=== PATIENT | female | born 1930 | race Caucasian/White ===

== ENCOUNTER 2018-02-12 12:43 | Observation (INO) | payer MEDICARE, BC ==
[2018-02-12] MEDS ORDERED: Sodium Chloride 0.9% 2.5 ML Syringe FLUSH PRN (12:45)
[2018-02-12] MEDS ORDERED: Sodium Chloride 0.9% 10 ML Syringe FLUSH PRN (12:45)
[2018-02-12] MEDS ORDERED: Sodium Chloride 0.9% 500 ML IV SCH (13:45)
[2018-02-12 14:24] LABS: CHLORIDE,CL 93 mmol/L (98-107); SODIUM,NA 129 mmol/L (136-145)
--- NOTE | 2018-02-12 14:50 | EDM.PDOC ---
ED HPI GENERAL MEDICAL PROBLEM - General Chief Complaint: Gastrointestinal Problem Stated Complaint: CONSTIPATION Time Seen by Provider: 02/12/18 14:47 Source of Information: Reports: Patient - History of Present Illness INITIAL COMMENTS - FREE TEXT/NARRATIVE: HISTORY AND PHYSICAL: History of present illness: [Patient presents with a chief complaint of constipation dizziness with standing and shakiness She generally lives alone In [place], [place]. She noted that she was having some constipation on Friday however Friday she did have a hard bowel movement, she called her son to come and get her to stay with him as she was feeling somewhat unsteady and lightheaded with standing and presents as such As she is asymptomatic alert interactive, he has dry mouth and oral mucosa skin tenting on the dorsum of her hands O fever nausea vomiting chills sweats no chest pain shortness of breath headache or palpitation no urine symptoms she does complain of dizziness with sitting or standing Review of systems: As per history of present illness and below otherwise all systems reviewed and negative. Past medical history: As per history of present illness and as reviewed below otherwise noncontributory. Surgical history: As per history of present illness and as reviewed below otherwise noncontributory. Social history: No reported history of drug or alcohol abuse. Family history: As per history of present illness and as reviewed below otherwise noncontributory. Physical exam: HEENT: Atraumatic, normocephalic, pupils reactive, negative for conjunctival pallor or scleral icterus, mucous membranes moist, throat clear, neck supple, nontender, trachea midline. Lungs: Clear to auscultation, breath sounds equal bilaterally, chest nontender. Heart: S1S2, regular, negative for clicks, rubs, or JVD. Abdomen: Soft, nondistended, nontender. Negative for masses or hepatosplenomegaly. Negative for costovertebral tenderness. Pelvis: Stable nontender. Genitourinary: Deferred. Rectal: Deferred. Extremities: Atraumatic, negative for cords or calf pain. Neurovascular unremarkable. Neuro: Awake, alert, oriented. Cranial nerves II through XII unremarkable. Cerebellum unremarkable. Motor and sensory unremarkable throughout. Exam nonfocal. Diagnostics: [CBC CMP UA troponin EKG Chest 1 view abd flat and upright CT head no contrast Orthostatic vitals ] Therapeutics: [ 500 mL normal saline bolus followed by 1 25 mL per hour ] Impression: [ dehydration Podiatry medius symptomatic secondary to above Orthostatic hypotension secondary to above Constipation secondary to above Renal insufficiency secondary to above Chronic history of baseline ] Definitive disposition and diagnosis as appropriate pending reevaluation and review of above. Abdominal Pain Score (Numeric/FACES): 3 - Related Data Allergies Allergy/AdvReac Type Severity Reaction Status Date / Time codeine Allergy Hives Verified 02/12/18 12:58 erythromycin base Allergy Hives Verified 02/12/18 12:58 Home Meds: Home Meds Amitriptyline [Elavil] 10 mg PO BEDTIME 09/16/14 [History] Levothyroxine 112 mcg PO DAILY 09/16/14 [History] Omeprazole [Prilosec] 20 mg PO DAILY 09/16/14 [History] Simvastatin [Zocor] 10 mg PO BEDTIME 09/16/14 [History] Acetaminophen 500 mg PO 02/12/18 [History] Calcium Carbonate/Vitamin D3 [Calcium 600 + Vit D 200] 1 tab PO DAILY 02/12/18 [ History] Cyanocobalamin (Vitamin B-12) [Vitamin B-12] 1,000 mcg PO DAILY 02/12/18 [ History] Fluticasone/Salmeterol [Advair 250-50] 1 puff INH BID 02/12/18 [History] Gluc/Drew-Msm#2/C/D3/Erich/Born [Roboxdyalj-Uctuzbmolyo-DCJ] 1 each PO DAILY 12/26 [History] Past Medical History Cardiovascular History: Reports: High Cholesterol, Hypertension Respiratory History: Reports: Asthma Gastrointestinal History: Reports: Chronic Constipation [employer] History: Reports: Neurological History: Reports: Other (See Below) Other Neuro History: andrea's Palsy Endocrine/Metabolic History: Reports: Hypothyroidism - Infectious Disease History Infectious Disease History: Reports: Measles, Mumps Social & Family History - Family History Family Medical History: Noncontributory - Tobacco Use Smoking Status *Q: Never Smoker - Caffeine Use Caffeine Use: Reports: Coffee - Recreational Drug Use Recreational Drug Use: No ED ROS GENERAL - Review of Systems Review Of Systems: See Below ED EXAM, GENERAL - Physical Exam Exam: See Below Course - Vital Signs Last Recorded V/S: Last Vital Signs Temp 96.5 F 02/12/18 13:00 Pulse 81 02/12/18 15:37 Resp 16 02/12/18 15:37 BP 142/73 H 02/12/18 15:37 Pulse Ox 94 L 02/12/18 15:37 Orthostatic Blood Pressure [ 89/45 Standing] Orthostatic Blood Pressure [ 115/65 Sitting] Orthostatic Blood Pressure [ 145/67 Supine] - Orders/Labs/Meds Orders: Active Orders 24 hr Category Date Time Status EKG Documentation Completion [RC] STAT Care 02/12/18 13:08 Active Orthostatic Vital Signs [RC] ASDIRECTED Care 02/12/18 13:38 Active Abdomen Series w Chest 1V [CR] Stat Exams 02/12/18 13:37 Taken Head wo Cont [CT] Stat Exams 02/12/18 14:02 Taken CULTURE URINE [RM] Stat Lab 02/12/18 14:11 Received UA W/MICROSCOPIC [URIN] Stat Lab 02/12/18 14:11 Ordered Sodium Chloride 0.9% [Normal Saline] 1,000 ml Med 02/12/18 14:45 Active IV STAT Sodium Chloride 0.9% [Normal Saline] 500 ml Med 02/12/18 13:45 Active IV STAT Sodium Chloride 0.9% [Saline Flush] Med 02/12/18 12:45 Active 10 ml FLUSH ASDIRECTED PRN Sodium Chloride 0.9% [Saline Flush] Med 02/12/18 12:45 Active 2.5 ml FLUSH ASDIRECTED PRN Saline Lock Insert [OM.PC] Stat Oth 02/12/18 12:45 Ordered Medication Orders Sodium Chloride (Normal Saline) 500 mls @ 999 mls/hr IV STAT MARIVEL Last Admin: 02/12/18 13:59 Dose: 999 mls/hr Sodium Chloride (Normal Saline) 1,000 mls @ 125 mls/hr IV STAT MARIVEL Last Admin: 02/12/18 15:24 Dose: 125 mls/hr Sodium Chloride (Saline Flush) 10 ml FLUSH ASDIRECTED PRN PRN Reason: Keep Vein Open Last Admin: 02/12/18 13:59 Dose: 10 ml Sodium Chloride (Saline Flush) 2.5 ml FLUSH ASDIRECTED PRN PRN Reason: Keep Vein Open Last Admin: 02/12/18 13:59 Dose: 2.5 ml Labs: Laboratory Tests 02/12/18 02/12/18 02/12/18 Range/Units 13:41 13:41 13:41 WBC 6.58 (4.0-11.0) K/uL RBC 4.25 L (4.30-5.90) M/uL Hgb 13.1 (12.0-16.0) g/dL Hct 38.9 (36.0-46.0) % MCV 91.5 (80.0-98.0) fL MCH 30.8 (27.0-32.0) pg MCHC 33.7 (31.0-37.0) g/dL RDW Std Deviation 43.3 (28.0-62.0) fl RDW Coeff of Carina 13 (11.0-15.0) % Plt Count 231 (150-400) K/uL MPV 8.90 (7.40-12.00) fL Neut % (Auto) 67.7 (48.0-80.0) % Lymph % (Auto) 23.1 (16.0-40.0) % [place] % (Auto) 9.0 (0.0-15.0) % Eos % (Auto) 0.0 (0.0-7.0) % Baso % (Auto) 0.2 (0.0-1.5) % Neut # (Auto) 4.5 (1.4-5.7) K/uL Lymph # (Auto) 1.5 (0.6-2.4) K/uL [place] # (Auto) 0.6 (0.0-0.8) K/uL Eos # (Auto) 0.0 (0.0-0.7) K/uL Baso # (Auto) 0.0 (0.0-0.1) K/uL Nucleated RBC % 0.0 /100WBC Nucleated RBCs # 0 K/uL INR 1.00 Sodium 129 L (136-145) mmol/L Potassium 4.5 (3.5-5.1) mmol/L Chloride 93 L (98-107) mmol/L Carbon Dioxide 27.0 (21.0-32.0) mmol/L BUN 27 H (7.0-18.0) mg/dL Creatinine 1.4 H (0.6-1.0) mg/dL Est Cr Clr Drug Dosing TNP Estimated GFR (MDRD) 35.7 ml/min Glucose 86 (74-106) mg/dL Calcium 9.6 (8.5-10.1) mg/dL Total Bilirubin 0.6 (0.2-1.0) mg/dL AST 17 (15-37) IU/L ALT 19 (14-63) IU/L Alkaline Phosphatase 97 (46-116) U/L Troponin I < 0.050 (0.000-0.056) ng/mL Total Protein 8.3 H (6.4-8.2) g/dL Albumin 3.6 (3.4-5.0) g/dL Globulin 4.7 H (2.0-3.5) g/dL Albumin/Globulin Ratio 0.8 L (1.3-2.8) Lipase 84 (73-393) U/L TSH 3rd Generation (0.36-3.74) uIU/mL Urine Color Urine Appearance Urine pH (5.0-8.0) Ur Specific [place] (1.001-1.035) Urine Protein (NEGATIVE) mg/dL Urine Glucose (UA) (NEGATIVE) mg/dL Urine Ketones (NEGATIVE) mg/dL Urine Occult Blood (NEGATIVE) Urine Nitrite (NEGATIVE) Urine Bilirubin (NEGATIVE) Urine Ictotest Urine Urobilinogen (<2.0) EU/dL Ur Leukocyte Esterase (NEGATIVE) Urine RBC (0-2/HPF) Urine WBC (0-5/HPF) Ur Epithelial Cells (NONE-FEW) Amorphous Sediment (NEGATIVE) Urine Bacteria (NEGATIVE) 02/12/18 02/12/18 Range/Units 13:41 14:11 WBC (4.0-11.0) K/uL RBC (4.30-5.90) M/uL Hgb (12.0-16.0) g/dL Hct (36.0-46.0) % MCV (80.0-98.0) fL MCH (27.0-32.0) pg MCHC (31.0-37.0) g/dL RDW Std Deviation (28.0-62.0) fl RDW Coeff of Carina (11.0-15.0) % Plt Count (150-400) K/uL MPV (7.40-12.00) fL Neut % (Auto) (48.0-80.0) % Lymph % (Auto) (16.0-40.0) % [place] % (Auto) (0.0-15.0) % Eos % (Auto) (0.0-7.0) % Baso % (Auto) (0.0-1.5) % Neut # (Auto) (1.4-5.7) K/uL Lymph # (Auto) (0.6-2.4) K/uL [place] # (Auto) (0.0-0.8) K/uL Eos # (Auto) (0.0-0.7) K/uL Baso # (Auto) (0.0-0.1) K/uL Nucleated RBC % /100WBC Nucleated RBCs # K/uL INR Sodium (136-145) mmol/L Potassium (3.5-5.1) mmol/L Chloride (98-107) mmol/L Carbon Dioxide (21.0-32.0) mmol/L BUN (7.0-18.0) mg/dL Creatinine (0.6-1.0) mg/dL Est Cr Clr Drug Dosing Estimated GFR (MDRD) ml/min Glucose (74-106) mg/dL Calcium (8.5-10.1) mg/dL Total Bilirubin (0.2-1.0) mg/dL AST (15-37) IU/L ALT (14-63) IU/L Alkaline Phosphatase (46-116) U/L Troponin I (0.000-0.056) ng/mL Total Protein (6.4-8.2) g/dL Albumin (3.4-5.0) g/dL Globulin (2.0-3.5) g/dL Albumin/Globulin Ratio (1.3-2.8) Lipase (73-393) U/L TSH 3rd Generation 0.21 L (0.36-3.74) uIU/mL Urine Color DARK YELLOW Urine Appearance SLT CLOUDY Urine pH 5.0 (5.0-8.0) Ur Specific [place] 1.025 (1.001-1.035) Urine Protein NEGATIVE (NEGATIVE) mg/dL Urine Glucose (UA) NEGATIVE (NEGATIVE) mg/dL Urine Ketones TRACE H (NEGATIVE) mg/dL Urine Occult Blood SMALL H (NEGATIVE) Urine Nitrite NEGATIVE (NEGATIVE) Urine Bilirubin SMALL H (NEGATIVE) Urine Ictotest NEGATIVE Urine Urobilinogen 0.2 (<2.0) EU/dL Ur Leukocyte Esterase SMALL (NEGATIVE) Urine RBC 0-1 (0-2/HPF) Urine WBC 1-3 (0-5/HPF) Ur Epithelial Cells FEW (NONE-FEW) Amorphous Sediment MODERATE (NEGATIVE) Urine Bacteria FEW (NEGATIVE) Meds: Medications Generic Name Dose Route Start Last Admin Trade Name Freq PRN Reason Stop Dose Admin Sodium Chloride 500 mls @ 999 mls/hr 02/12/18 13:45 02/12/18 13:59 Normal Saline IV 999 mls/hr STAT MARIVEL Administration Sodium Chloride 1,000 mls @ 125 mls/hr 02/12/18 14:45 02/12/18 15:24 Normal Saline IV 125 mls/hr STAT MARIVEL Administration Sodium Chloride 10 ml 02/12/18 12:45 02/12/18 13:59 Saline Flush FLUSH 10 ml ASDIRECTED PRN Administration Keep Vein Open Sodium Chloride 2.5 ml 02/12/18 12:45 02/12/18 13:59 Saline Flush FLUSH 2.5 ml ASDIRECTED PRN Administration Keep Vein Open Departure - Departure Time of Disposition: 15:40 Disposition: Refer to Observation Condition: Fair Clinical Impression: Dehydration, Hyponatremia - Discharge Information Referrals: PCP,None [Primary Care Provider] - Forms: ED Department Discharge - My Orders Last 24 Hours: My Active Orders 02/12/18 13:08 EKG Documentation Completion [RC] STAT 02/12/18 13:37 Abdomen Series w Chest 1V [CR] Stat 02/12/18 13:38 Orthostatic Vital Signs [RC] ASDIRECTED 02/12/18 13:45 Sodium Chloride 0.9% [Normal Saline] 500 ml IV STAT 02/12/18 14:02 Head wo Cont [CT] Stat 02/12/18 14:11 CULTURE URINE [RM] Stat 02/12/18 14:45 Sodium Chloride 0.9% [Normal Saline] 1,000 ml IV STAT - Assessment/Plan Last 24 Hours: My Active Orders 02/12/18 13:08 EKG Documentation Completion [RC] STAT 02/12/18 13:37 Abdomen Series w Chest 1V [CR] Stat 02/12/18 13:38 Orthostatic Vital Signs [RC] ASDIRECTED 02/12/18 13:45 Sodium Chloride 0.9% [Normal Saline] 500 ml IV STAT 02/12/18 14:02 Head wo Cont [CT] Stat 02/12/18 14:11 CULTURE URINE [RM] Stat 02/12/18 14:45 Sodium Chloride 0.9% [Normal Saline] 1,000 ml IV STAT
[2018-02-12] MEDS: Sodium Chloride 0.9% 1,000 ML IV SCH ×2 (15:24→23:29)
[2018-02-12] MEDS ORDERED: Ondansetron 4 MG/2 ML SDV IVPUSH PRN (19:51)
--- NOTE | 2018-02-12 19:55 | PCM.HP ---
H&P History of Present Illness - General Date of Service: 02/12/18 Admit Problem/Dx: Admission Diagnosis/Problem Admission Diagnosis/Problem Dehydration - History of Present Illness Initial Comments - Free Text/Narative: 87 yo female who presents with three day history of dizziness, lightheadedness and constipation. Patient reports some mild abdominal cramping and nausea, but no vomiting. Her apatite has been poor. She has been eating prunes and had two bowel movements yesterday. She was noted to have orthostatic hypotension in the ED with a sodium of 126 and creatinine of 1.4. Abdominal Pain Score (Numeric/FACES): 3 - Related Data Allergies/Adverse Reactions: Allergies Allergy/AdvReac Type Severity Reaction Status Date / Time codeine Allergy Hives Verified 02/12/18 12:58 erythromycin base Allergy Hives Verified 02/12/18 12:58 Home Medications: Home Meds Amitriptyline [Elavil] 10 mg PO BEDTIME 09/16/14 [History] Levothyroxine 112 mcg PO DAILY 09/16/14 [History] Omeprazole [Prilosec] 20 mg PO DAILY 09/16/14 [History] Simvastatin [Zocor] 10 mg PO BEDTIME 09/16/14 [History] Acetaminophen 500 mg PO 02/12/18 [History] Calcium Carbonate/Vitamin D3 [Calcium 600 + Vit D 200] 1 tab PO DAILY 02/12/18 [ History] Cyanocobalamin (Vitamin B-12) [Vitamin B-12] 1,000 mcg PO DAILY 02/12/18 [ History] Fluticasone/Salmeterol [Advair 250-50] 1 puff INH BID 02/12/18 [History] Gluc/Drew-Msm#2/C/D3/Erich/Born [[id number]-Hogsgetokok-CJQ] 1 each PO DAILY 12/26 [History] Past Medical History Cardiovascular History: Reports: High Cholesterol, Hypertension Respiratory History: Reports: Asthma Gastrointestinal History: Reports: Chronic Constipation [employer] History: Reports: Neurological History: Reports: Other (See Below) Other Neuro History: andrea's Palsy Endocrine/Metabolic History: Reports: Hypothyroidism - Infectious Disease History Infectious Disease History: Reports: Measles, Mumps Social & Family History - Family History Family Medical History: Noncontributory - Tobacco Use Smoking Status *Q: Former Smoker Used Tobacco, but Quit: Yes Month/Year Tobacco Last Used: 1949 Second Hand Smoke Exposure: No - Caffeine Use Caffeine Use: Reports: Coffee, Soda - Recreational Drug Use Recreational Drug Use: No H&P Review of Systems - Review of Systems: Review Of Systems: ROS reveals no pertinent complaints other than HPI. Exam - Exam Exam: See Below - Vital Signs Vital Signs: Last Vital Signs Temp 36.3 C 02/12/18 16:30 Pulse 83 02/12/18 16:30 Resp 17 02/12/18 16:30 BP 161/78 H 02/12/18 16:30 Pulse Ox 98 02/12/18 16:30 Orthostatic Blood Pressure [ 89/45 Standing] Orthostatic Blood Pressure [ 115/65 Sitting] Orthostatic Blood Pressure [ 145/67 Supine] Weight: 51.3 kg - Exam General: Alert, Oriented HEENT: Posterior Pharynx Clear Neck: Supple Lungs: Clear to Auscultation, Normal Respiratory Effort Cardiovascular: Regular Rate, Regular Rhythm GI/Abdominal Exam: Normal Bowel Sounds, Soft, Non-Tender, No Distention, No Mass Extremities: Non-Tender, No Pedal Edema - Patient Data Lab Results Last 24 hrs: Laboratory Results - last 24 hr 02/12/18 02/12/18 02/12/18 Range/Units 13:41 13:41 13:41 WBC 6.58 (4.0-11.0) K/uL RBC 4.25 L (4.30-5.90) M/uL Hgb 13.1 (12.0-16.0) g/dL Hct 38.9 (36.0-46.0) % MCV 91.5 (80.0-98.0) fL MCH 30.8 (27.0-32.0) pg MCHC 33.7 (31.0-37.0) g/dL RDW Std Deviation 43.3 (28.0-62.0) fl RDW Coeff of Carina 13 (11.0-15.0) % Plt Count 231 (150-400) K/uL MPV 8.90 (7.40-12.00) fL Neut % (Auto) 67.7 (48.0-80.0) % Lymph % (Auto) 23.1 (16.0-40.0) % [place] % (Auto) 9.0 (0.0-15.0) % Eos % (Auto) 0.0 (0.0-7.0) % Baso % (Auto) 0.2 (0.0-1.5) % Neut # (Auto) 4.5 (1.4-5.7) K/uL Lymph # (Auto) 1.5 (0.6-2.4) K/uL [place] # (Auto) 0.6 (0.0-0.8) K/uL Eos # (Auto) 0.0 (0.0-0.7) K/uL Baso # (Auto) 0.0 (0.0-0.1) K/uL Nucleated RBC % 0.0 /100WBC Nucleated RBCs # 0 K/uL INR 1.00 Sodium 129 L (136-145) mmol/L Potassium 4.5 (3.5-5.1) mmol/L Chloride 93 L (98-107) mmol/L Carbon Dioxide 27.0 (21.0-32.0) mmol/L BUN 27 H (7.0-18.0) mg/dL Creatinine 1.4 H (0.6-1.0) mg/dL Est Cr Clr Drug Dosing TNP Estimated GFR (MDRD) 35.7 ml/min Glucose 86 (74-106) mg/dL Calcium 9.6 (8.5-10.1) mg/dL Total Bilirubin 0.6 (0.2-1.0) mg/dL AST 17 (15-37) IU/L ALT 19 (14-63) IU/L Alkaline Phosphatase 97 (46-116) U/L Troponin I < 0.050 (0.000-0.056) ng/mL Total Protein 8.3 H (6.4-8.2) g/dL Albumin 3.6 (3.4-5.0) g/dL Globulin 4.7 H (2.0-3.5) g/dL Albumin/Globulin Ratio 0.8 L (1.3-2.8) Lipase 84 (73-393) U/L TSH 3rd Generation (0.36-3.74) uIU/mL Urine Color Urine Appearance Urine pH (5.0-8.0) Ur Specific [place] (1.001-1.035) Urine Protein (NEGATIVE) mg/dL Urine Glucose (UA) (NEGATIVE) mg/dL Urine Ketones (NEGATIVE) mg/dL Urine Occult Blood (NEGATIVE) Urine Nitrite (NEGATIVE) Urine Bilirubin (NEGATIVE) Urine Ictotest Urine Urobilinogen (<2.0) EU/dL Ur Leukocyte Esterase (NEGATIVE) Urine RBC (0-2/HPF) Urine WBC (0-5/HPF) Ur Epithelial Cells (NONE-FEW) Amorphous Sediment (NEGATIVE) Urine Bacteria (NEGATIVE) 02/12/18 02/12/18 Range/Units 13:41 14:11 WBC (4.0-11.0) K/uL RBC (4.30-5.90) M/uL Hgb (12.0-16.0) g/dL Hct (36.0-46.0) % MCV (80.0-98.0) fL MCH (27.0-32.0) pg MCHC (31.0-37.0) g/dL RDW Std Deviation (28.0-62.0) fl RDW Coeff of Carina (11.0-15.0) % Plt Count (150-400) K/uL MPV (7.40-12.00) fL Neut % (Auto) (48.0-80.0) % Lymph % (Auto) (16.0-40.0) % [place] % (Auto) (0.0-15.0) % Eos % (Auto) (0.0-7.0) % Baso % (Auto) (0.0-1.5) % Neut # (Auto) (1.4-5.7) K/uL Lymph # (Auto) (0.6-2.4) K/uL [place] # (Auto) (0.0-0.8) K/uL Eos # (Auto) (0.0-0.7) K/uL Baso # (Auto) (0.0-0.1) K/uL Nucleated RBC % /100WBC Nucleated RBCs # K/uL INR Sodium (136-145) mmol/L Potassium (3.5-5.1) mmol/L Chloride (98-107) mmol/L Carbon Dioxide (21.0-32.0) mmol/L BUN (7.0-18.0) mg/dL Creatinine (0.6-1.0) mg/dL Est Cr Clr Drug Dosing Estimated GFR (MDRD) ml/min Glucose (74-106) mg/dL Calcium (8.5-10.1) mg/dL Total Bilirubin (0.2-1.0) mg/dL AST (15-37) IU/L ALT (14-63) IU/L Alkaline Phosphatase (46-116) U/L Troponin I (0.000-0.056) ng/mL Total Protein (6.4-8.2) g/dL Albumin (3.4-5.0) g/dL Globulin (2.0-3.5) g/dL Albumin/Globulin Ratio (1.3-2.8) Lipase (73-393) U/L TSH 3rd Generation 0.21 L (0.36-3.74) uIU/mL Urine Color DARK YELLOW Urine Appearance SLT CLOUDY Urine pH 5.0 (5.0-8.0) Ur Specific [place] 1.025 (1.001-1.035) Urine Protein NEGATIVE (NEGATIVE) mg/dL Urine Glucose (UA) NEGATIVE (NEGATIVE) mg/dL Urine Ketones TRACE H (NEGATIVE) mg/dL Urine Occult Blood SMALL H (NEGATIVE) Urine Nitrite NEGATIVE (NEGATIVE) Urine Bilirubin SMALL H (NEGATIVE) Urine Ictotest NEGATIVE Urine Urobilinogen 0.2 (<2.0) EU/dL Ur Leukocyte Esterase SMALL (NEGATIVE) Urine RBC 0-1 (0-2/HPF) Urine WBC 1-3 (0-5/HPF) Ur Epithelial Cells FEW (NONE-FEW) Amorphous Sediment MODERATE (NEGATIVE) Urine Bacteria FEW (NEGATIVE) Result Diagrams: 02/12/18 13:41 02/12/18 13:41 Problem List Initiated/Reviewed/Updated: Yes Orders Last 24hrs: Active Orders 24 hr Category Date Time Status Admission Status [Patient Status] [ADT] Stat ADT 02/12/18 15:41 Active Enema [RC] ASDIRECTED Care 02/12/18 19:50 Ordered Orthostatic Vital Signs [RC] ASDIRECTED Care 02/12/18 13:38 Active Oxygen Therapy [RC] PRN Care 02/12/18 19:51 Ordered Up ad Treva [RC] ASDIRECTED Care 02/12/18 19:51 Ordered VTE/DVT Education [RC] PER UNIT ROUTINE Care 02/12/18 19:51 Ordered Vital Signs [RC] Q4H Care 02/12/18 19:51 Ordered Regular Diet [DIET] Diet 02/12/18 Dinner Active Abdomen Series w Chest 1V [CR] Stat Exams 02/12/18 13:37 Taken Head wo Cont [CT] Stat Exams 02/12/18 14:02 Taken BASIC METABOLIC PANEL,BMP [CHEM] AM Lab 02/13/18 05:11 Ordered CBC WITH AUTO DIFF [HEME] AM Lab 02/13/18 05:11 Ordered CULTURE URINE [RM] Stat Lab 02/12/18 14:11 Received UA W/MICROSCOPIC [URIN] Stat Lab 02/12/18 14:11 Ordered Acetaminophen [Tylenol] Med 02/12/18 19:51 Ordered 650 mg PO Q4H PRN Amitriptyline [Elavil] Med 02/12/18 21:00 Ordered 10 mg PO BEDTIME Bisacodyl [Dulcolax] Med 02/12/18 19:50 Ordered 10 mg PO DAILY PRN Calcium Carbonate/Vitamin D3 Med 02/13/18 09:00 Ordered 1 tab PO DAILY Cyanocobalamin (Vitamin B-12) Med 02/13/18 09:00 Ordered 1,000 mcg PO DAILY Fluticasone/Salmeterol [Advair Diskus 250-50] Med 02/12/18 21:00 Ordered 1 puff INH BID Gluc/Drew-Msm#2/C/D3/Erich/Born [Glucosamin-Chondroitin- Med 02/13/18 09:00 Ordered MSM] 1 each PO DAILY Levothyroxine Med 02/13/18 09:00 Ordered 112 mcg PO DAILY Omeprazole Med 02/13/18 09:00 Ordered 20 mg PO DAILY Ondansetron [Zofran] Med 02/12/18 19:51 Ordered 4 mg IVPUSH Q4H PRN Polyethylene Glycol 3350 [MiraLAX] Med 02/12/18 19:48 Ordered 17 gm PO BEDTIME PRN Simvastatin [Zocor] Med 02/12/18 21:00 Ordered 10 mg PO BEDTIME Sodium Chloride 0.9% [Normal Saline] 1,000 ml Med 02/12/18 17:15 Active IV ASDIRECTED Sodium Chloride 0.9% [Normal Saline] 1,000 ml Med 02/12/18 14:45 Active IV STAT Sodium Chloride 0.9% [Normal Saline] 500 ml Med 02/12/18 13:45 Active IV STAT Sodium Chloride 0.9% [Saline Flush] Med 02/12/18 12:45 Active 10 ml FLUSH ASDIRECTED PRN Sodium Chloride 0.9% [Saline Flush] Med 02/12/18 12:45 Active 2.5 ml FLUSH ASDIRECTED PRN Saline Lock Insert [OM.PC] Stat Ot 02/12/18 12:45 Ordered Sequential Compression Device [OM.PC] Per Unit Routine Oth 02/12/18 19:51 Ordered Resuscitation Status Routine Resus Stat 02/12/18 19:51 Ordered Medication Orders Acetaminophen (Tylenol) 650 mg PO Q4H PRN PRN Reason: Pain (Mild 1-3)/fever Bisacodyl (Dulcolax) 10 mg PO DAILY PRN PRN Reason: Constipation Sodium Chloride (Normal Saline) 500 mls @ 999 mls/hr IV STAT MARIVEL Last Admin: 02/12/18 13:59 Dose: 999 mls/hr Sodium Chloride (Normal Saline) 1,000 mls @ 125 mls/hr IV STAT MARIVEL Last Admin: 02/12/18 15:24 Dose: 125 mls/hr Sodium Chloride (Normal Saline) 1,000 mls @ 125 mls/hr IV ASDIRECTED MARIVEL Ondansetron HCl (Zofran) 4 mg IVPUSH Q4H PRN PRN Reason: Nausea Polyethylene Glycol (Miralax) 17 gm PO BEDTIME PRN PRN Reason: Constipation Sodium Chloride (Saline Flush) 10 ml FLUSH ASDIRECTED PRN PRN Reason: Keep Vein Open Last Admin: 02/12/18 13:59 Dose: 10 ml Sodium Chloride (Saline Flush) 2.5 ml FLUSH ASDIRECTED PRN PRN Reason: Keep Vein Open Last Admin: 02/12/18 13:59 Dose: 2.5 ml Assessment/Plan Comment:: 87 yo female admitted with constipation and dehydration. We will hydrate with IV fluids and start a bowel regiment.
[2018-02-12] MEDS: Amitriptyline 10 MG Tab PO SCH (20:10)
[2018-02-12] MEDS: Fluticasone/Salmeterol 250-50 MCG Inhalation Powder 14/Diskus INH SCH (20:10)
[2018-02-12] MEDS: Polyethylene Glycol 3350 Powder 17 GM Packet PO PRN (20:10)
[2018-02-12] MEDS: Simvastatin 10 MG Tab PO SCH (20:10)
[2018-02-12] MEDS: Acetaminophen 325 MG Tab PO PRN (20:12)
[2018-02-13] MEDS: Levothyroxine 112 MCG Tab PO SCH (06:09)
[2018-02-13] MEDS: Sodium Chloride 0.9% 1,000 ML IV SCH ×2 (06:53→17:16)
[2018-02-13] MEDS: Acetaminophen 325 MG Tab PO PRN ×3 (07:16→20:02)
[2018-02-13] MEDS: Omeprazole 20 MG Cap.CR PO SCH (07:17)
[2018-02-13] MEDS: Calcium Carbonate/Vitamin D3 1500 MG-400 Units Tab PO SCH (08:43)
[2018-02-13] MEDS: Cyanocobalamin (Vitamin B12) 500 MCG Tab PO SCH (08:43)
[2018-02-13] MEDS ORDERED: Non-Formulary Medication 1 Each (Gluc/Chon-Msm#2/C/D3/Mang/Born [Glucosamin-Chondroitin-Ms PO SCH (09:00)
[2018-02-13] MEDS: Fluticasone/Salmeterol 250-50 MCG Inhalation Powder 14/Diskus INH SCH ×2 (10:02→20:03)
--- NOTE | 2018-02-13 11:26 | PCM.PN ---
- General Info Date of Service: 02/13/18 - Review of Systems Systems Review Comment:: had bowel movement with enema this morning and is feeling better. - Patient Data Vitals - Most Recent: Last Vital Signs Temp 37.0 C 02/13/18 07:00 Pulse 71 02/13/18 07:00 Resp 14 02/13/18 07:00 BP 127/58 L 02/13/18 07:00 Pulse Ox 98 02/13/18 07:00 Orthostatic Blood Pressure [ 123/63 Standing] Orthostatic Blood Pressure [ 135/87 Sitting] Orthostatic Blood Pressure [ 127/59 Supine] Weight - Most Recent: 51.3 kg I&O - Last 24 Hours: Intake & Output 02/12/18 02/13/18 02/13/18 22:59 06:59 14:59 Intake Total 896 Output Total 800 Balance 96 Lab Results Last 24 Hours: Laboratory Results - last 24 hr 02/12/18 02/12/18 02/12/18 Range/Units 13:41 13:41 13:41 WBC 6.58 (4.0-11.0) K/uL RBC 4.25 L (4.30-5.90) M/uL Hgb 13.1 (12.0-16.0) g/dL Hct 38.9 (36.0-46.0) % MCV 91.5 (80.0-98.0) fL MCH 30.8 (27.0-32.0) pg MCHC 33.7 (31.0-37.0) g/dL RDW Std Deviation 43.3 (28.0-62.0) fl RDW Coeff of Carina 13 (11.0-15.0) % Plt Count 231 (150-400) K/uL MPV 8.90 (7.40-12.00) fL Neut % (Auto) 67.7 (48.0-80.0) % Lymph % (Auto) 23.1 (16.0-40.0) % [place] % (Auto) 9.0 (0.0-15.0) % Eos % (Auto) 0.0 (0.0-7.0) % Baso % (Auto) 0.2 (0.0-1.5) % Neut # (Auto) 4.5 (1.4-5.7) K/uL Lymph # (Auto) 1.5 (0.6-2.4) K/uL [place] # (Auto) 0.6 (0.0-0.8) K/uL Eos # (Auto) 0.0 (0.0-0.7) K/uL Baso # (Auto) 0.0 (0.0-0.1) K/uL Nucleated RBC % 0.0 /100WBC Nucleated RBCs # 0 K/uL INR 1.00 Sodium 129 L (136-145) mmol/L Potassium 4.5 (3.5-5.1) mmol/L Chloride 93 L (98-107) mmol/L Carbon Dioxide 27.0 (21.0-32.0) mmol/L BUN 27 H (7.0-18.0) mg/dL Creatinine 1.4 H (0.6-1.0) mg/dL Est Cr Clr Drug Dosing TNP Estimated GFR (MDRD) 35.7 ml/min Glucose 86 (74-106) mg/dL Calcium 9.6 (8.5-10.1) mg/dL Total Bilirubin 0.6 (0.2-1.0) mg/dL AST 17 (15-37) IU/L ALT 19 (14-63) IU/L Alkaline Phosphatase 97 (46-116) U/L Troponin I < 0.050 (0.000-0.056) ng/mL Total Protein 8.3 H (6.4-8.2) g/dL Albumin 3.6 (3.4-5.0) g/dL Globulin 4.7 H (2.0-3.5) g/dL Albumin/Globulin Ratio 0.8 L (1.3-2.8) Lipase 84 (73-393) U/L TSH 3rd Generation (0.36-3.74) uIU/mL Urine Color Urine Appearance Urine pH (5.0-8.0) Ur Specific [place] (1.001-1.035) Urine Protein (NEGATIVE) mg/dL Urine Glucose (UA) (NEGATIVE) mg/dL Urine Ketones (NEGATIVE) mg/dL Urine Occult Blood (NEGATIVE) Urine Nitrite (NEGATIVE) Urine Bilirubin (NEGATIVE) Urine Ictotest Urine Urobilinogen (<2.0) EU/dL Ur Leukocyte Esterase (NEGATIVE) Urine RBC (0-2/HPF) Urine WBC (0-5/HPF) Ur Epithelial Cells (NONE-FEW) Amorphous Sediment (NEGATIVE) Urine Bacteria (NEGATIVE) 02/12/18 02/12/18 02/13/18 Range/Units 13:41 14:11 04:58 WBC 4.62 (4.0-11.0) K/uL RBC 3.63 L (4.30-5.90) M/uL Hgb 10.9 L (12.0-16.0) g/dL Hct 33.6 L (36.0-46.0) % MCV 92.6 (80.0-98.0) fL MCH 30.0 (27.0-32.0) pg MCHC 32.4 (31.0-37.0) g/dL RDW Std Deviation 43.9 (28.0-62.0) fl RDW Coeff of Carina 13 (11.0-15.0) % Plt Count 199 (150-400) K/uL MPV 8.80 (7.40-12.00) fL Neut % (Auto) 53.2 (48.0-80.0) % Lymph % (Auto) 32.7 (16.0-40.0) % [place] % (Auto) 13.9 (0.0-15.0) % Eos % (Auto) 0.0 (0.0-7.0) % Baso % (Auto) 0.2 (0.0-1.5) % Neut # (Auto) 2.5 (1.4-5.7) K/uL Lymph # (Auto) 1.5 (0.6-2.4) K/uL [place] # (Auto) 0.6 (0.0-0.8) K/uL Eos # (Auto) 0.0 (0.0-0.7) K/uL Baso # (Auto) 0.0 (0.0-0.1) K/uL Nucleated RBC % 0.0 /100WBC Nucleated RBCs # 0 K/uL INR Sodium (136-145) mmol/L Potassium (3.5-5.1) mmol/L Chloride (98-107) mmol/L Carbon Dioxide (21.0-32.0) mmol/L BUN (7.0-18.0) mg/dL Creatinine (0.6-1.0) mg/dL Est Cr Clr Drug Dosing Estimated GFR (MDRD) ml/min Glucose (74-106) mg/dL Calcium (8.5-10.1) mg/dL Total Bilirubin (0.2-1.0) mg/dL AST (15-37) IU/L ALT (14-63) IU/L Alkaline Phosphatase (46-116) U/L Troponin I (0.000-0.056) ng/mL Total Protein (6.4-8.2) g/dL Albumin (3.4-5.0) g/dL Globulin (2.0-3.5) g/dL Albumin/Globulin Ratio (1.3-2.8) Lipase (73-393) U/L TSH 3rd Generation 0.21 L (0.36-3.74) uIU/mL Urine Color DARK YELLOW Urine Appearance SLT CLOUDY Urine pH 5.0 (5.0-8.0) Ur Specific [place] 1.025 (1.001-1.035) Urine Protein NEGATIVE (NEGATIVE) mg/dL Urine Glucose (UA) NEGATIVE (NEGATIVE) mg/dL Urine Ketones TRACE H (NEGATIVE) mg/dL Urine Occult Blood SMALL H (NEGATIVE) Urine Nitrite NEGATIVE (NEGATIVE) Urine Bilirubin SMALL H (NEGATIVE) Urine Ictotest NEGATIVE Urine Urobilinogen 0.2 (<2.0) EU/dL Ur Leukocyte Esterase SMALL (NEGATIVE) Urine RBC 0-1 (0-2/HPF) Urine WBC 1-3 (0-5/HPF) Ur Epithelial Cells FEW (NONE-FEW) Amorphous Sediment MODERATE (NEGATIVE) Urine Bacteria FEW (NEGATIVE) 02/13/18 Range/Units 04:58 WBC (4.0-11.0) K/uL RBC (4.30-5.90) M/uL Hgb (12.0-16.0) g/dL Hct (36.0-46.0) % MCV (80.0-98.0) fL MCH (27.0-32.0) pg MCHC (31.0-37.0) g/dL RDW Std Deviation (28.0-62.0) fl RDW Coeff of Carina (11.0-15.0) % Plt Count (150-400) K/uL MPV (7.40-12.00) fL Neut % (Auto) (48.0-80.0) % Lymph % (Auto) (16.0-40.0) % [place] % (Auto) (0.0-15.0) % Eos % (Auto) (0.0-7.0) % Baso % (Auto) (0.0-1.5) % Neut # (Auto) (1.4-5.7) K/uL Lymph # (Auto) (0.6-2.4) K/uL [place] # (Auto) (0.0-0.8) K/uL Eos # (Auto) (0.0-0.7) K/uL Baso # (Auto) (0.0-0.1) K/uL Nucleated RBC % /100WBC Nucleated RBCs # K/uL INR Sodium 134 L (136-145) mmol/L Potassium 5.2 H (3.5-5.1) mmol/L Chloride 102 (98-107) mmol/L Carbon Dioxide 22.6 (21.0-32.0) mmol/L BUN 21 H (7.0-18.0) mg/dL Creatinine 1.2 H (0.6-1.0) mg/dL Est Cr Clr Drug Dosing 24.62 Estimated GFR (MDRD) 42.7 ml/min Glucose 108 H (74-106) mg/dL Calcium 8.3 L (8.5-10.1) mg/dL Total Bilirubin (0.2-1.0) mg/dL AST (15-37) IU/L ALT (14-63) IU/L Alkaline Phosphatase (46-116) U/L Troponin I (0.000-0.056) ng/mL Total Protein (6.4-8.2) g/dL Albumin (3.4-5.0) g/dL Globulin (2.0-3.5) g/dL Albumin/Globulin Ratio (1.3-2.8) Lipase (73-393) U/L TSH 3rd Generation (0.36-3.74) uIU/mL Urine Color Urine Appearance Urine pH (5.0-8.0) Ur Specific [place] (1.001-1.035) Urine Protein (NEGATIVE) mg/dL Urine Glucose (UA) (NEGATIVE) mg/dL Urine Ketones (NEGATIVE) mg/dL Urine Occult Blood (NEGATIVE) Urine Nitrite (NEGATIVE) Urine Bilirubin (NEGATIVE) Urine Ictotest Urine Urobilinogen (<2.0) EU/dL Ur Leukocyte Esterase (NEGATIVE) Urine RBC (0-2/HPF) Urine WBC (0-5/HPF) Ur Epithelial Cells (NONE-FEW) Amorphous Sediment (NEGATIVE) Urine Bacteria (NEGATIVE) Med Orders - Current: Current Medications Acetaminophen (Tylenol) 650 mg PO Q4H PRN PRN Reason: Pain (Mild 1-3)/fever Last Admin: 02/13/18 07:16 Dose: 650 mg Amitriptyline HCl (Elavil) 10 mg PO BEDTIME [facility] Last Admin: 02/12/18 20:10 Dose: 10 mg Bisacodyl (Dulcolax) 10 mg PO DAILY PRN PRN Reason: Constipation Calcium Carbonate (Caltrate 600+D 1500 Mg-400 Units) 1 tab PO DAILY [facility] Last Admin: 02/13/18 08:43 Dose: 1 tab Cyanocobalamin (Vitamin B12) 1,000 mcg PO DAILY [facility] Last Admin: 02/13/18 08:43 Dose: 1,000 mcg Sodium Chloride (Normal Saline) 500 mls @ 999 mls/hr IV STAT [facility] Last Admin: 02/12/18 13:59 Dose: 999 mls/hr Sodium Chloride (Normal Saline) 1,000 mls @ 125 mls/hr IV STAT [facility] Last Admin: 02/12/18 23:29 Dose: 125 mls/hr Sodium Chloride (Normal Saline) 1,000 mls @ 125 mls/hr IV ASDIRECTED [facility] Last Admin: 02/13/18 06:53 Dose: 125 mls/hr Levothyroxine Sodium (Levothyroxine) 112 mcg PO DAILY@0700 [facility] Last Admin: 02/13/18 06:09 Dose: 112 mcg Omeprazole (Omeprazole) 20 mg PO ACBREAKFAST [facility] Last Admin: 02/13/18 07:17 Dose: 20 mg Ondansetron HCl (Zofran) 4 mg IVPUSH Q4H PRN PRN Reason: Nausea Polyethylene Glycol (Miralax) 17 gm PO BEDTIME PRN PRN Reason: Constipation Last Admin: 02/12/18 20:10 Dose: 17 gm Fluticasone/Salmeterol (Advair Diskus 250-50) 0 puff INH BID [facility] Last Admin: 02/13/18 10:02 Dose: 1 puff Simvastatin (Zocor) 10 mg PO BEDTIME [facility] Last Admin: 02/12/18 20:10 Dose: 10 mg Sodium Chloride (Saline Flush) 10 ml FLUSH ASDIRECTED PRN PRN Reason: Keep Vein Open Last Admin: 02/12/18 13:59 Dose: 10 ml Sodium Chloride (Saline Flush) 2.5 ml FLUSH ASDIRECTED PRN PRN Reason: Keep Vein Open Last Admin: 02/12/18 13:59 Dose: 2.5 ml - Exam General: Alert, Oriented HEENT: Mucous Membr. Moist/[employer] Neck: Supple Lungs: Clear to Auscultation, Normal Respiratory Effort Cardiovascular: Regular Rate, Regular Rhythm GI/Abdominal Exam: Normal Bowel Sounds, Soft, Non-Tender, No Distention Extremities: Non-Tender, No Pedal Edema Skin: Warm, Dry, Intact - Problem List Review Problem List Initiated/Reviewed/Updated: Yes - My Orders Last 24 Hours: My Active Orders 02/12/18 17:15 Sodium Chloride 0.9% [Normal Saline] 1,000 ml IV ASDIRECTED 02/12/18 19:48 Polyethylene Glycol 3350 [MiraLAX] 17 gm PO BEDTIME PRN 02/12/18 19:50 Enema [RC] ASDIRECTED Bisacodyl [Dulcolax] 10 mg PO DAILY PRN 02/12/18 19:51 Up ad Treva [RC] ASDIRECTED VTE/DVT Education [RC] PER UNIT ROUTINE Vital Signs [RC] Q4H Acetaminophen [Tylenol] 650 mg PO Q4H PRN Ondansetron [Zofran] 4 mg IVPUSH Q4H PRN Sequential Compression Device [OM.PC] Per Unit Routine Resuscitation Status Routine 02/12/18 21:00 Amitriptyline [Elavil] 10 mg PO BEDTIME Fluticasone/Salmeterol [Advair Diskus 250-50] 0 puff INH BID Simvastatin [Zocor] 10 mg PO BEDTIME 02/12/18 Dinner Regular Diet [DIET] 02/13/18 07:00 Levothyroxine 112 mcg PO DAILY@0700 02/13/18 07:30 Omeprazole 20 mg PO ACBREAKFAST 02/13/18 09:00 Calcium Carbonate/Vitamin D3 [Caltrate 600+D 1500 MG-400 Units] 1 tab PO DAILY Cyanocobalamin (Vitamin B12) [Vitamin B12] 1,000 mcg PO DAILY - Plan Plan:: 87 yo female admitted with constipation and dehydration. We will continue bowel regiment, gentle IV fluid hydration. We will discharge home tomorrow.
--- NOTE | 2018-02-13 15:08 | CR ---
EXAM DATE: 02/12/18 PATIENT'S AGE: 87 Patient: EUGENE NINA Facility: [place], [place] Site . Site : [id number] Study: XRay Abdomen ABD SERIES W/ CHEST [id number]/[id number] 2:29:02 PM Ordering Physician: Amber Brar Final Report: Indication: Pain Technique: Chest and abdomen 3 view. Comparison: None. Findings: Chest: Heart size and pulmonary vasculature are normal. Lungs and pleural spaces are clear except for left lung granulomas. No pneumothorax. Bowel: There is moderate stool retention in the rectum. Bowel pattern is otherwise unremarkable. Soft tissues: No sign of free air. No sign of soft tissue mass. Prominent gallbladder stone is in the right upper quadrant. Bones: There is scoliosis and multilevel degenerative spondylosis in the lumbar spine. Impression: 1. No acute or significant findings in the chest. 2. Cholelithiasis with a single prominent gallstone visualized. 3. Moderate stool retention is present in the sigmoid colon. Dictated by Jorge Elizondo MD @ Feb 12 2018 2:55PM (Electronic Signature) Report Signed by Proxy. ALEX
--- NOTE | 2018-02-13 15:15 | CT ---
EXAM DATE: 02/12/18 PATIENT'S AGE: 87 Patient: EUGENE NINA Facility: [place], [place] Site . Site : [id number] Study: CT Head [id number] 3:03:34 PM Ordering Physician: Amber Brar Final Report: Indication: Pain. Technique: Multiaxial CT images of the head were obtained without contrast. Coronal and sagittal reformats were submitted. Comparison: 02/03/2009 MRI brain ([facility]) Findings: The ventricles, sulci and gyri are of normal size, shape and contour. Midline structures are centrally located. No convincing evidence of intra- or extra- axial fluid collections. The calvarium and skull base are unremarkable, with normal aeration of the visualized petrous temporal bones and paranasal sinuses on both sides. Moderate opacification of the sphenoid sinus. Mild mucosal thickening in the right ethmoid air cells. Please correlate for acute sinus disease. Opacities are noted in both external ear canals which probably represents cerumen. Impression: 1. No radiographic evidence of acute intracranial abnormality. 2. Moderate opacification of the sphenoid sinus. Mild mucosal thickening in the right ethmoid air cells. Please correlate for acute sinus disease. Please note that all CT scans at this facility use dose modulation, iterative reconstruction, and/or weight-based dosing when appropriate to reduce radiation dose to as low as reasonably achievable. Dictated by Hai Campbell MD @ Feb 12 2018 3:25PM (Electronic Signature) Report Signed by Proxy. ALEX
[2018-02-13] MEDS: Simvastatin 10 MG Tab PO SCH (20:02)
[2018-02-13] MEDS: Amitriptyline 10 MG Tab PO SCH (20:02)
[2018-02-13] MEDS: Polyethylene Glycol 3350 Powder 17 GM Packet PO PRN (20:03)
[2018-02-13] MEDS: Bisacodyl 5 MG Tab PO PRN (22:27)
[2018-02-14] MEDS: Levothyroxine 112 MCG Tab PO SCH (06:29)
[2018-02-14] MEDS: Omeprazole 20 MG Cap.CR PO SCH (06:30)
[2018-02-14] MEDS: Cyanocobalamin (Vitamin B12) 500 MCG Tab PO SCH (08:10)
[2018-02-14] MEDS: Calcium Carbonate/Vitamin D3 1500 MG-400 Units Tab PO SCH (08:10)
[2018-02-14] MEDS: Bisacodyl 5 MG Tab PO PRN (08:11)
[2018-02-14] MEDS: Acetaminophen 325 MG Tab PO PRN (08:11)
[2018-02-14] MEDS: Fluticasone/Salmeterol 250-50 MCG Inhalation Powder 14/Diskus INH SCH (09:51)
--- NOTE | 2018-02-14 11:24 | PCM.DCSUM1 ---
Discharge Summary - Discharge Data Discharge Date: 02/14/18 Discharge Disposition: Home, Self-Care 01 Condition: Good - Patient Summary/Data Hospital Course: 87 yo female who was admitted for dehydration, acute kidney injury and constipation. She presented with three day history of dizziness, lightheadedness and constipation. Patient reports some mild abdominal cramping and nausea, but no vomiting. Her apatite had been poor. She was noted to have orthostatic hypotension in the ED with a sodium of 126 and creatinine of 1.4. She was treated with IV fluids, dulcolax, mirilax and enema. She had improvement in her sodium and creatinine and had a large bowel movement. Today she is agreeable for discharge. She was discharged home to have follow up with Dr. Bernal. - Patient Instructions Diet: Regular Diet as Tolerated - Discharge Plan Prescriptions/Med Rec: Bisacodyl [Dulcolax] 10 mg PO DAILY PRN #30 tablet PRN Reason: Constipation Polyethylene Glycol 3350 [MiraLAX] 17 gm PO BEDTIME PRN #30 packet PRN Reason: Constipation Home Medications: Home Meds Amitriptyline [Elavil] 10 mg PO BEDTIME 09/16/14 [History] Levothyroxine 112 mcg PO DAILY 09/16/14 [History] Omeprazole [Prilosec] 20 mg PO DAILY 09/16/14 [History] Simvastatin [Zocor] 10 mg PO BEDTIME 09/16/14 [History] Acetaminophen 500 mg PO 02/12/18 [History] Calcium Carbonate/Vitamin D3 [Calcium 600 + Vit D 200] 1 tab PO DAILY 02/12/18 [ History] Cyanocobalamin (Vitamin B-12) [Vitamin B-12] 1,000 mcg PO DAILY 02/12/18 [ History] Fluticasone/Salmeterol [Advair 250-50] 1 puff INH BID 02/12/18 [History] Gluc/Drew-Msm#2/C/D3/Erich/Born [[id number]] 1 each PO DAILY 12/26 [History] Bisacodyl [Dulcolax] 10 mg PO DAILY PRN #30 tablet 02/14/18 [Rx] Polyethylene Glycol 3350 [MiraLAX] 17 gm PO BEDTIME PRN #30 packet 02/14/18 [Rx] Patient Handouts: Constipation, Adult, [id number], Dehydration, Adult, Easy- to-Read Referrals: Isidoro Summers MD [Physician] - 03/03/18 12:45 pm - Patient Data Vitals - Most Recent: Last Vital Signs Temp 36.9 C 02/14/18 08:00 Pulse 73 02/14/18 08:00 Resp 16 02/14/18 08:00 BP 145/55 H 02/14/18 08:00 Pulse Ox 97 02/14/18 08:00 Orthostatic Blood Pressure [ 138/82 Standing] Orthostatic Blood Pressure [ 151/64 Sitting] Orthostatic Blood Pressure [ 145/55 Supine] Weight - Most Recent: 51.3 kg I&O - Last 24 hours: Intake & Output 02/13/18 02/14/18 02/14/18 22:59 06:59 14:59 Intake Total 207 1427 210 Output Total 1350 2050 Balance 726 -623 210 Lab Results - Last 24 hrs: Laboratory Results - last 24 hr 02/14/18 02/14/18 Range/Units 05:10 05:10 WBC 4.76 (4.0-11.0) K/uL RBC 3.36 L (4.30-5.90) M/uL Hgb 10.3 L (12.0-16.0) g/dL Hct 31.7 L (36.0-46.0) % MCV 94.3 (80.0-98.0) fL MCH 30.7 (27.0-32.0) pg MCHC 32.5 (31.0-37.0) g/dL RDW Std Deviation 45.8 (28.0-62.0) fl RDW Coeff of Carina 13 (11.0-15.0) % Plt Count 177 (150-400) K/uL MPV 8.80 (7.40-12.00) fL Neut % (Auto) 59.4 (48.0-80.0) % Lymph % (Auto) 28.8 (16.0-40.0) % [place] % (Auto) 11.6 (0.0-15.0) % Eos % (Auto) 0.0 (0.0-7.0) % Baso % (Auto) 0.2 (0.0-1.5) % Neut # (Auto) 2.8 (1.4-5.7) K/uL Lymph # (Auto) 1.4 (0.6-2.4) K/uL [place] # (Auto) 0.6 (0.0-0.8) K/uL Eos # (Auto) 0.0 (0.0-0.7) K/uL Baso # (Auto) 0.0 (0.0-0.1) K/uL Nucleated RBC % 0.0 /100WBC Nucleated RBCs # 0 K/uL Sodium 136 (136-145) mmol/L Potassium 5.0 (3.5-5.1) mmol/L Chloride 105 (98-107) mmol/L Carbon Dioxide 24.5 (21.0-32.0) mmol/L BUN 13 (7.0-18.0) mg/dL Creatinine 0.9 (0.6-1.0) mg/dL Est Cr Clr Drug Dosing 32.83 mL/min Estimated GFR (MDRD) 59.5 ml/min Glucose 105 (74-106) mg/dL Calcium 8.4 L (8.5-10.1) mg/dL JONATHAN Results - Last 24 hrs: Microbiology 02/12/18 14:11 Urine Culture - Final Urine, Clean Catch MIXED TONYA >100,000 CFU/ML Med Orders - Current: Current Medications Acetaminophen (Tylenol) 650 mg PO Q4H PRN PRN Reason: Pain (Mild 1-3)/fever Last Admin: 02/14/18 08:11 Dose: 650 mg Amitriptyline HCl (Elavil) 10 mg PO BEDTIME [facility] Last Admin: 02/13/18 20:02 Dose: 10 mg Bisacodyl (Dulcolax) 10 mg PO DAILY PRN PRN Reason: Constipation Last Admin: 02/14/18 08:11 Dose: 10 mg Calcium Carbonate (Caltrate 600+D 1500 Mg-400 Units) 1 tab PO DAILY [facility] Last Admin: 02/14/18 08:10 Dose: 1 tab Cyanocobalamin (Vitamin B12) 1,000 mcg PO DAILY [facility] Last Admin: 02/14/18 08:10 Dose: 1,000 mcg Sodium Chloride (Normal Saline) 1,000 mls @ 50 mls/hr IV ASDIRECTED [facility] Last Admin: 07/06/18 17:16 Dose: 50 mls/hr Levothyroxine Sodium (Levothyroxine) 112 mcg PO DAILY@0700 [facility] Last Admin: 02/14/18 06:29 Dose: 112 mcg Omeprazole (Omeprazole) 20 mg PO ACBREAKFAST [facility] Last Admin: 02/14/18 06:30 Dose: 20 mg Ondansetron HCl (Zofran) 4 mg IVPUSH Q4H PRN PRN Reason: Nausea Polyethylene Glycol (Miralax) 17 gm PO BEDTIME PRN PRN Reason: Constipation Last Admin: 02/13/18 20:03 Dose: 17 gm Fluticasone/Salmeterol (Advair Diskus 250-50) 0 puff INH BID [facility] Last Admin: 02/14/18 09:51 Dose: 1 puff Simvastatin (Zocor) 10 mg PO BEDTIME [facility] Last Admin: 02/13/18 20:02 Dose: 10 mg Sodium Chloride (Saline Flush) 10 ml FLUSH ASDIRECTED PRN PRN Reason: Keep Vein Open Last Admin: 02/12/18 13:59 Dose: 10 ml Sodium Chloride (Saline Flush) 2.5 ml FLUSH ASDIRECTED PRN PRN Reason: Keep Vein Open Last Admin: 02/12/18 13:59 Dose: 2.5 ml Discontinued Medications Sodium Chloride (Normal Saline) 500 mls @ 999 mls/hr IV STAT [facility] Last Admin: 02/12/18 13:59 Dose: 999 mls/hr Sodium Chloride (Normal Saline) 1,000 mls @ 125 mls/hr IV STAT [facility] Last Admin: 02/12/18 23:29 Dose: 125 mls/hr
[2018-02-14 13:16] VITALS: BP 120/51
== END 2018-02-14 12:37 | disposition home or self-care (01) ==
LOC: MW.ED 12:43 → MW.MS 15:41 → MW.ED 16:20
PROVIDERS: ADMIT Internal Medicine; ATTEND Internal Medicine
DX: K59.09 Other constipation (principal); E86.0 Dehydration; N17.9 Acute kidney failure, unspecified; E78.00 Pure hypercholesterolemia, unspecified; I10 Essential (primary) hypertension; E03.9 Hypothyroidism, unspecified; J45.909 Unspecified asthma, uncomplicated; Z87.891 Personal history of nicotine dependence; Z79.51 Long term (current) use of inhaled steroids; Z79.899 Other long term (current) drug therapy; Z88.5 Allergy status to narcotic agent; Z88.8 Allergy status to other drugs, medicaments and biological substances
CPT/HCPCS: 36415; 70450; 74022; 80048; 80053; 81001; 83690; 84443; 84484; 85025; 85610; 87086; 93005; 96360; 96361; 99285; A9270; J7040; G0378

== ENCOUNTER 2018-09-18 10:17 | Emergency (ER) | payer MEDICARE, BC ==
[2018-09-18] MEDS ORDERED: Sodium Chloride 0.9% 10 ML Syringe FLUSH PRN (10:27)
[2018-09-18] MEDS ORDERED: Sodium Chloride 0.9% 2.5 ML Syringe FLUSH PRN (10:27)
--- NOTE | 2018-09-18 10:31 | EDM.PDOC ---
ED HPI GENERAL MEDICAL PROBLEM - General Chief Complaint: General Stated Complaint: AMB Time Seen by Provider: 09/18/18 10:30 Source of Information: Reports: Patient History Limitations: Reports: No Limitations - History of Present Illness INITIAL COMMENTS - FREE TEXT/NARRATIVE: HISTORY AND PHYSICAL: History of present illness: Patient is an 88-year-old female who [place] the ED [place] with complaint of chest pain and left arm pain. She states that she has had the chest pain for about 2-3 days and this morning she developed chest pain with left arm pain which was new. She saw her doctor at [address], Dr. Summers yesterday and pain was thought to be due to a recent viral gastroenteritis. She denies any associated shortness of breath, palpitations, diaphoresis, nausea, left jaw pain. She currently has no pain at this time. She states she took 324mg aspirin this morning. She denies fevers, chills, cough, vomiting, diarrhea. Past medical history significant for hypertension hyperlipidemia. EKG shows atrial fibrillation with a rate of 61. Upon further questioning she states she believes she has been diagnosed with atrial fibrillation in the past but is not on anticoagulants. Review of systems: As per history of present illness and below otherwise all systems reviewed and negative. Past medical history: As per history of present illness and as reviewed below otherwise noncontributory. Surgical history: As per history of present illness and as reviewed below otherwise noncontributory. Social history: No reported history of drug or alcohol abuse. Family history: As per history of present illness and as reviewed below otherwise noncontributory. Physical exam: General: Patient sitting comfortably in no acute distress and nontoxic appearing HEENT: Atraumatic, normocephalic, pupils reactive, negative for conjunctival pallor or scleral icterus, mucous membranes moist, throat clear, neck supple, nontender, trachea midline. No meningeal signs. Lungs: Clear to auscultation, breath sounds equal bilaterally, tenderness to palpation of the left anterior chest wall. Heart: S1S2, regular, negative for clicks, rubs, or overt murmur. Abdomen: Soft, nondistended, nontender. Negative for masses or hepatosplenomegaly. Negative for costovertebral tenderness. Pelvis: Stable nontender. Genitourinary: Deferred. Rectal: Deferred. Extremities: Atraumatic, negative for cords or calf pain. Neurovascular unremarkable. Neuro: Awake, alert, oriented. Cranial nerves II through XII unremarkable. Cerebellum unremarkable. Motor and sensory unremarkable throughout. Exam nonfocal. Notes: Discussed with patient admitting for chest pain and ACS r/o but would need to transfer to [facility] secondary to being on diversion. She declined transfer and would like to follow up with her primary care provider. Diagnostics: CBC, CMP, troponin, EKG, chest x-ray Therapeutics: None Prescriptions: None Impression: Chest pain, atrial fibrillation Plan: 1. Take a daily baby aspirin (81mg) as instructed. 2. Follow up with your primary care provider, please call to schedule and appointment 3. Return to ED as needed as discussed Definitive disposition and diagnosis as appropriate pending reevaluation and review of above. Left Arm Pain Score (Numeric/FACES): 4 - Related Data Allergies Allergy/AdvReac Type Severity Reaction Status Date / Time codeine Allergy Hives Verified 09/18/18 10:33 erythromycin base Allergy Hives Verified 09/18/18 10:33 Home Meds: Home Meds Amitriptyline [Elavil] 20 mg PO BEDTIME 09/16/14 [History] Levothyroxine 100 mcg PO DAILY 09/16/14 [History] Omeprazole [Prilosec] 20 mg PO DAILY 09/16/14 [History] Simvastatin [Zocor] 10 mg PO BEDTIME 09/16/14 [History] Acetaminophen 500 mg PO DAILY 02/12/18 [History] Calcium Carbonate/Vitamin D3 [Calcium 600 + Vit D 200] 1 tab PO DAILY 02/12/18 [ History] Cyanocobalamin (Vitamin B-12) [Vitamin B-12] 1,000 mcg PO DAILY 02/12/18 [ History] Fluticasone/Salmeterol [Advair 250-50] 1 puff INH BID 02/12/18 [History] Gluc/Drew-Msm#2/C/D3/Erich/Born [Xmpksctbdp-Gykmmiaqugd-ZGW] 2 each PO DAILY 12/26 [History] Bisacodyl [Dulcolax] 10 mg PO DAILY PRN #30 tablet 02/14/18 [Rx] Polyethylene Glycol 3350 [MiraLAX] 17 gm PO BEDTIME PRN #30 packet 02/14/18 [Rx] Albuterol [Ventolin HFA] 2 puff Q4HR PRN 09/18/18 [History] Alendronate [Fosamax] 70 mg PO WEEKLY 09/18/18 [History] Turmeric Root Extract [Turmeric Curcumin] 1 tab DAILY 09/18/18 [History] Past Medical History Cardiovascular History: Reports: High Cholesterol, Hypertension Respiratory History: Reports: Asthma Gastrointestinal History: Reports: Chronic Constipation [employer] History: Reports: Neurological History: Reports: Other (See Below) Other Neuro History: andrea's Palsy Endocrine/Metabolic History: Reports: Hypothyroidism - Infectious Disease History Infectious Disease History: Reports: Measles, Mumps Social & Family History - Family History Family Medical History: Noncontributory - Caffeine Use Caffeine Use: Reports: Coffee, Soda ED ROS GENERAL - Review of Systems Review Of Systems: ROS reveals no pertinent complaints other than HPI. ED EXAM, GENERAL - Physical Exam Exam: See Below (See dictation) Course - Vital Signs Last Recorded V/S: Last Vital Signs Temp 97.3 F 09/18/18 10:29 Pulse 66 09/18/18 10:29 Resp 18 09/18/18 10:29 BP 123/86 09/18/18 10:29 Pulse Ox 95 09/18/18 10:29 - Orders/Labs/Meds Orders: Active Orders 24 hr Category Date Time Status EKG Documentation Completion [RC] STAT Care 09/18/18 10:27 Active Sodium Chloride 0.9% [Saline Flush] Med 09/18/18 10:27 Active 10 ml FLUSH ASDIRECTED PRN Sodium Chloride 0.9% [Saline Flush] Med 09/18/18 10:27 Active 2.5 ml FLUSH ASDIRECTED PRN Saline Lock Insert [OM.PC] Stat Oth 09/18/18 10:27 Ordered Medication Orders Sodium Chloride (Saline Flush) 10 ml FLUSH ASDIRECTED PRN PRN Reason: Keep Vein Open Sodium Chloride (Saline Flush) 2.5 ml FLUSH ASDIRECTED PRN PRN Reason: Keep Vein Open Labs: Laboratory Tests 09/18/18 09/18/18 Range/Units 10:27 10:27 WBC 4.24 (4.0-11.0) K/uL RBC 3.98 L (4.30-5.90) M/uL Hgb 12.6 (12.0-16.0) g/dL Hct 38.2 (36.0-46.0) % MCV 96.0 (80.0-98.0) fL MCH 31.7 (27.0-32.0) pg MCHC 33.0 (31.0-37.0) g/dL RDW Std Deviation 46.5 (28.0-62.0) fl RDW Coeff of Carina 13 (11.0-15.0) % Plt Count 147 L (150-400) K/uL MPV 8.90 (7.40-12.00) fL Neut % (Auto) 49.4 (48.0-80.0) % Lymph % (Auto) 39.6 (16.0-40.0) % [place] % (Auto) 10.8 (0.0-15.0) % Eos % (Auto) 0.0 (0.0-7.0) % Baso % (Auto) 0.2 (0.0-1.5) % Neut # (Auto) 2.1 (1.4-5.7) K/uL Lymph # (Auto) 1.7 (0.6-2.4) K/uL [place] # (Auto) 0.5 (0.0-0.8) K/uL Eos # (Auto) 0.0 (0.0-0.7) K/uL Baso # (Auto) 0.0 (0.0-0.1) K/uL Nucleated RBC % 0.0 /100WBC Nucleated RBCs # 0 K/uL Sodium 136 (136-145) mmol/L Potassium 4.4 (3.5-5.1) mmol/L Chloride 100 (98-107) mmol/L Carbon Dioxide 27.3 (21.0-32.0) mmol/L BUN 22 H (7.0-18.0) mg/dL Creatinine 1.1 H (0.6-1.0) mg/dL Est Cr Clr Drug Dosing 26.37 mL/min Estimated GFR (MDRD) 47.1 ml/min Glucose 95 (74-106) mg/dL Calcium 9.7 (8.5-10.1) mg/dL Total Bilirubin 0.6 (0.2-1.0) mg/dL AST 25 (15-37) IU/L ALT 27 (14-63) IU/L Alkaline Phosphatase 73 (46-116) U/L Troponin I < 0.050 (0.000-0.056) ng/mL Total Protein 7.7 (6.4-8.2) g/dL Albumin 3.7 (3.4-5.0) g/dL Globulin 4.0 (2.6-4.0) g/dL Albumin/Globulin Ratio 0.9 (0.9-1.6) Meds: Medications Generic Name Dose Route Start Last Admin Trade Name Freq PRN Reason Stop Dose Admin Sodium Chloride 10 ml 09/18/18 10:27 Saline Flush FLUSH ASDIRECTED PRN Keep Vein Open Sodium Chloride 2.5 ml 09/18/18 10:27 Saline Flush FLUSH ASDIRECTED PRN Keep Vein Open Departure - Departure Time of Disposition: 11:49 Disposition: Home, Self-Care 01 Condition: Good Clinical Impression: Chest pain, Atrial fibrillation - Discharge Information Referrals: Isidoro Summers MD [Physician] - 3 Days Forms: ED Department Discharge Additional Instructions: The following information is given to patients seen in the emergency department who are being discharged to home. This information is to outline your options for follow-up care. We provide all patients seen in our emergency department with a follow-up referral. The need for follow-up, as well as the timing and circumstances, are variable depending upon the specifics of your emergency department visit. If you don't have a primary care physician on staff, we will provide you with a referral. We always advise you to contact your personal physician following an emergency department visit to inform them of the circumstance of the visit and for follow-up with them and/or the need for any referrals to a consulting specialist. The emergency department will also refer you to a specialist when appropriate. This referral assures that you have the opportunity for follow-up care with a specialist. All of these measure are taken in an effort to provide you with optimal care, which includes your follow-up. Under all circumstances we always encourage you to contact your private physician who remains a resource for coordinating your care. When calling for follow-up care, please make the office aware that this follow-up is from your recent emergency room visit. If for any reason you are refused follow-up, please contact the [facility] Emergency Department at and asked to speak to the emergency department charge nurse. [address] [address] 1. Take a daily baby aspirin (81mg) as instructed. 2. Follow up with your primary care provider, please call to schedule and appointment 3. Return to ED as needed as discussed - My Orders Last 24 Hours: My Active Orders 09/18/18 10:27 EKG Documentation Completion [RC] STAT Sodium Chloride 0.9% [Saline Flush] 10 ml FLUSH ASDIRECTED PRN Sodium Chloride 0.9% [Saline Flush] 2.5 ml FLUSH ASDIRECTED PRN Saline Lock Insert [OM.PC] Stat - Assessment/Plan Last 24 Hours: My Active Orders 09/18/18 10:27 EKG Documentation Completion [RC] STAT Sodium Chloride 0.9% [Saline Flush] 10 ml FLUSH ASDIRECTED PRN Sodium Chloride 0.9% [Saline Flush] 2.5 ml FLUSH ASDIRECTED PRN Saline Lock Insert [OM.PC] Stat
--- NOTE | 2018-09-18 11:09 | CR ---
EXAMINATION: Portable chest radiograph. HISTORY: Chest pain. FINDINGS: The trachea is midline. The cardiomediastinal silhouette is within normal limits. No pulmonary infiltrates, effusions or pneumothorax. Ossified granuloma within the left lung base and left mid chest. Aorta is tortuous. Osseous structures appear unremarkable. IMPRESSION: No acute cardiopulmonary process.
[2018-09-18 11:14] LABS: CHLORIDE,CL 100 mmol/L (98-107); SODIUM,NA 136 mmol/L (136-145)
[2018-09-18 13:22] VITALS: BP 127/62
== END 2018-09-18 12:15 | disposition home or self-care (01) ==
LOC: MW.ED 10:17
DX: I48.91 Unspecified atrial fibrillation (principal); I10 Essential (primary) hypertension; E78.00 Pure hypercholesterolemia, unspecified; E03.9 Hypothyroidism, unspecified; J45.909 Unspecified asthma, uncomplicated; Z79.899 Other long term (current) drug therapy; Z88.5 Allergy status to narcotic agent; Z88.1 Allergy status to other antibiotic agents
CPT/HCPCS: 36415; 71045; 71045-26; 80053; 84484; 85025; 93005; 99284; 99285-25